=== PATIENT | female | born 1970 | race Caucasian/White ===

== ENCOUNTER 2024-05-01 08:38 | Outpatient (CLI) | payer OTHER, SELFPAY ==
[2024-05-01 13:38] LABS: Basophils Absolute Auto 0.1 K/mm3 (0.0-0.1); Basophils Percent Auto 1.4 % (0.2-1.2); Eosinophils Absolute Auto 0.2 K/mm3 (0-0.3); Eosinophils Percent Auto 2.8 % (0-4.4); Hematocrit 45.9 % (37.0-47.0); Hemoglobin 15.2 g/dL (12.0-15.0); Immature Granulocyte Absolute 0.01 K/mm3 (0.00-0.031); Immature Granulocyte Percent A 0.2 % (0-0.5); Lymphocytes Absolute Auto 2.32 K/mm3 (0.9-3.2); Lymphocytes Percent Auto 40.3 % (18.3-44.2); Mean Corpuscular HGB Conc 33.1 g/dl (32-36); Mean Corpuscular Hemoglobin 31.4 pg (26-34); Mean Corpuscular Volume 94.8 fl (80-100); Mean Platelet Volume 10.3 fl (7.4-10.4); Monocytes Absolute Auto 0.5 K/mm3 (0.1-0.6); Monocytes Percent Auto 7.8 % (2.6-8.5); Neutrophils Absolute Auto 2.7 K/mm3 (1.3-6.7); Neutrophils Percent Auto 47.5 % (45.5-73.1); Platelet Count Result 357 k/mm3 (150-375); Red Blood Count 4.84 M/mm3 (4.2-5.4); Red Cell Distribution Width 11.9 % (11.5-14.5); White Blood Count 5.8 K/mm3 (4.5-10.0)
[2024-05-01 13:41] LABS: Alanine Aminotransferase 45 U/L (6-35); Albumin Level 4.6 g/dL (3.5-5.1); Alkaline Phosphatase 72 U/L (38-126); Anion Gap 6 mmol/L (4-12); Aspartate Amino Transferase 94 U/L (14-36); Bilirubin,Total 0.3 mg/dL (0.2-1.3); Blood Urea Nitrogen 17 mg/dL (7-17); Calcium 9.4 mg/dL (8.4-10.2); Carbon Dioxide 30 mmol/L (22-30); Chloride 102 mmol/L (98-107); Estimated Glomerular Filt Rate > 60; Glucose 87 mg/dL (65-110); Potassium 4.7 mmol/L (3.4-5.0); Sodium 138 mmol/L (137-145)
[2024-05-01 17:23] LABS: Free T4 Free Thyroxine 1.02 ng/mL (0.78-2.19); Vitamin D 25 Hydroxy 53.7 ng/mL
[2024-05-01 19:22] LABS: Hemoglobin A1C 4.9 % (<5.7)
== END 2024-05-01 08:39 | disposition home or self-care (01) ==
LOC: ANHGOSHLAB 08:40
PROVIDERS: PCP Family Medicine; Visit Provider Family Medicine
DX: R73.9 Hyperglycemia, unspecified (principal); E78.5 Hyperlipidemia, unspecified; E55.9 Vitamin D deficiency, unspecified; R53.83 Other fatigue
CPT/HCPCS: 36415; 80053; 82306; 83036; 84439; 84443; 85025

== ENCOUNTER 2024-07-08 08:00 | Outpatient (CLI) | payer OTHER, SELFPAY ==
[2024-07-08 13:47] LABS: Alanine Aminotransferase 18 U/L (6-35); Albumin Level 4.3 g/dL (3.5-5.1); Alkaline Phosphatase 75 U/L (38-126); Aspartate Amino Transferase 54 U/L (14-36); Bilirubin,Total 0.6 mg/dL (0.2-1.3)
--- OUTSIDE RECORDS SUMMARY | 2024-07-11 11:43 | XMS_ITS | Clinical Summary ---
Author Organization [facility] [employer] Address [address] [place] [address] Care Team Providers Care Plastics Nurse Name Role Phone Ping Sanchez MD Primary Care Provider Source Comments [facility] [employer],non-owned Affiliates and Associated Physician Practices is amultiple site organization consisting of ambulatory clinics and hospital sitesin [place], [place], [place] and [place]. This disclosure is being madepursuant to the Care Everywhere program and may not contain all information available regarding this patient. Last updated 18.[employer] Allergies Active Allergy Reactions Criticality Noted Date Comments Naproxen 05/30/2008 Medications * Be aware that medications may not be up to date on this document. Always verify current medications with the patient. Medication Sig Dispensed Refills Start Date End Date Status multivitamin daily tablet Take 1 Tab by mouth daily. Active calcium 500 MG TABS tablet Take 500 mg by mouth daily. Active Biotin 1000 MCG Take 1,000 mcg by mouth once daily Active meclizine (ANTIVERT) 25 MG tablet Take 1 Tab by mouth 3 times daily as needed for Dizziness 30 Tab 06/16/2016 Active triamterene-hydroCH LOROthiazide (DYAZIDE) 37.5-25 MG capsule TK ONE C PO D 08/13/2018 Active guaiFENesin-codeine (ROBITUSSIN AC) 100-10 MG/5ML syrup Take 10 mL by mouth every 4 hours as needed for Cough 210 mL 01/01/2019 Active benzonatate (TESSALON) 200 MG capsule Take 1 capsule by mouth 3 times daily as needed for Cough 40 capsule 01/01/2019 Active Active Problems Problem Noted Date Diagnosed Date Acute bronchitis 01/01/2019 Acute maxillary sinusitis 01/01/2019 Generalized anxiety disorder 07/03/2008 Seasonal allergic rhinitis 05/30/2008 Screening for condition 05/30/2008 Overview (03/19/2015): Pap Smear: 10/[address] Luz Immunizations Name Administration Dates Next Due TDAP (7yrs+) 01/04/2008 Family History Medical History Relation Name Comments Hypertension Brother Asthma Father Diabetes Father Heart Disease Father Cancer - Stomach Paternal Aunt in 70 's Relation Name Status Comments Brother Father Paternal Aunt Social History Tobacco Use Types Packs/Day Years Used Date Smoking Tobacco: Never Smokeless Tobacco: Never Tobacco Cessation:Counseling Given: Yes Alcohol Use Standard Drinks/Week Comments Yes 0 (1 standard drink = 0.6 oz pur e alcohol) Occ. Sex and Gender Information Value Date Recorded Sex Assigned at Not on file Gender Identity Not on file Sexual Orientation Not on file Last Filed Vital Signs Vital Sign Reading Time Taken Comments Blood Pressure 132/84 01/01/2019 3:29 PM CDT Pulse 84 01/01/2019 3:29 PM CDT Temperature 37.1 ??C (98.8 ??F) 01/01/2019 3:29 PM CD T Respiratory Rate - - Oxygen Saturation - - Inhaled Oxygen Concentration - - Weight 73.7 kg (162 lb 6.4 oz) 01/01/2019 3:29 P M CDT Height 165.1 cm (5' 5 ) 01/01/2019 3:29 PM CDT Body Mass Index 27.02 01/01/2019 3:29 PM CDT Plan of Treatment Health Maintenance Due Date Last Done Comments COLOGUARD (AGES 45-75) - COL ON CA SCREENING 1971 COLON MONITORING 1971 COLONOSCOPY - COLON CA SCREENING 1971 CT COLONOGRAPHY - COLON CA SCREENING 1971 Colorectal Cancer Screening 1971 FIT - COLON CA SCREENING 1971 FLEX SIG - COLON CA SCREENING 1971 MAMMOGRAM 1971 PAP SMEAR 1971 HIV SCREENING 1986 HEPATITIS C SCREENING 05/26/1989 HEPATITIS B VACCINE (1 of 3 - 19+ 3-dose series) 1990 LIPID TESTING 09/19/2016 09/20/2011, 07/03/2008 DTAP/TDAP/TD VACCINES (2 - T d or Tdap) 01/03/2018 01/04/2008 SCREENING FOR DIABETES 01/01/2019 2, 07/03/2008 PNEUMOCOCCAL VACCINE 50+ (1 of 1 - PCV) 2021 ZOSTER VACCINE (1 of 2) 2021 COVID-19 VACCINE (1 - 2023-2 5 season) 2024 INFLUENZA VACCINE (#1) 2024 DEPRESSION SCREENING 06/19/2024 HIB VACCINE Aged Out No longer eligi ble based on patient's age to complete this topic HPV VACCINE Aged Out No longer eligi ble based on patient's age to complete this topic MENINGOCOCCAL (Group B) VACCINE Aged Out No longer eligible b ased on patient's age to complete this topic MENINGOCOCCAL VACCINE Aged Out No roman zee eligible based on patient's age to complete this topic PNEUMOCOCCAL VACCINE Aged Out No long er eligible based on patient's age to complete this topic Procedures Procedure Name Priority Date/Time Associated Diagnosis Comments GENERAL HEALTH PANEL Routine 09/20/2011 11:30 AM CDT Annual physical exam LIPID PROFILE W TCHOL/HDL Routine 09/20/2011 11:30 AM CDT Annual physical exam from Last 3 Months or Most Recently Relevant to Health Maintenance Results * GENERAL HEALTH PANEL (09/20/2011 11:30 AM CDT) Glucose 91 65 - 99 mg/dL [facility] ACCOUNT BILL BUN 14 6 - 24 mg/dL [facility] ACCOUNT BILL Creatinine 0.75 0.57 - 1.00 mg/dL [facility] ACCOUNT BILL eGFR by MDRD 100 >59 mL/min/1. 73 [facility] ACCOUNT BILL eGFR by MDRD 115 >59 mL/min/1. 73 [facility] ACCOUNT BILL Comment: Note: A persistent eGFR <60 mL/min/1.73 m2 (3 months or more) may indicate chronic kidney disease. An eGFR >59 mL/min/1.73 m2 with an elevated urine protein also may indicate chronic kidney disease. Calculated using CKD-EPI formula. BUN/Creatinine Ratio 19 9 - 23 [facility] ACCOUNT BILL Sodium 140 134 - 144 mmol/L [facility] ACCOUNT BILL Potassium 4.1 3.5 - 5.2 mmol/L [facility] ACCOUNT BILL Chloride 102 97 - 108 mmol/L [facility] ACCOUNT BILL CO2 23 20 - 32 mmol/L [facility] ACCOUNT BILL Calcium 9.5 8.7 - 10.2 mg/dL [facility] ACCOUNT BILL Protein Total 6.6 6.0 - 8.5 g/dL [facility] ACCOUNT BILL Albumin 4.3 3.5 - 5.5 g/dL [facility] ACCOUNT BILL Globulin Total 2.3 1.5 - 4.5 g/dL [facility] ACCOUNT BILL Albumin/Globulin Ratio 1.9 1.1 - 2.5 [facility] ACCOUNT BILL Bilirubin Total 0.3 0.0 - 1.2 mg/dL [facility] ACCOUNT BILL Alkaline Phosphatase 55 25 - 150 IU/L [facility] ACCOUNT BILL AST 16 0 - 40 IU/L [facility] ACCOUNT BILL ALT 12 0 - 40 IU/L [facility] ACCOUNT BILL TSH 2.340 0.450 - 4.500 uIU/mL [facility] ACCOUNT BILL WBC 7.7 4.0 - 10.5 x10E3/uL [facility] ACCOUNT BILL RBC 4.20 3.80 - 5.10 x10E6/uL [facility] ACCOUNT BILL Hemoglobin 13.0 11.5 - 15.0 g/dL [facility] ACCOUNT BILL Hematocrit 39.5 34.0 - 44.0 % [facility] ACCOUNT BILL MCV 94 80 - 98 fL [facility] ACCOUNT BILL MCH 31.0 27.0 - 34.0 pg [facility] ACCOUNT BILL MCHC 32.9 32.0 - 36.0 g/dL [facility] ACCOUNT BILL RDW 12.7 11.7 - 15.0 % [facility] ACCOUNT BILL Platelet Count 301 140 - 415 x10E3/uL [facility] ACCOUNT BILL Granulocytes % 58 40 - 74 % [facility] ACCOUNT BILL Lymphocytes % 31 14 - 46 % [facility] ACCOUNT BILL Monocytes % 9 4 - 13 % [facility] ACCOUNT BILL Eosinophils % 1 0 - 7 % [facility] ACCOUNT BILL Basophils % 1 0 - 3 % [facility] ACCOUNT BILL Immature Cells NOT NEEDED [facility] ACCOUNT B[facility] Comment:Ancillary determined the test is not needed Granulocytes Absolute 4.6 1.8 - 7.8 x10E3/uL [facility] ACCOUNT BILL Lymphocytes Absolute 2.4 0.7 - 4.5 x10E3/uL [facility] ACCOUNT BILL Monocytes Absolute 0.7 0.1 - 1.0 x10E3/uL [facility] ACCOUNT BILL Eosinophils Absolute 0.0 0.0 - 0.4 x10E3/uL [facility] ACCOUNT BILL Basophils Absolute 0.0 0.0 - 0.2 x10E3/uL [facility] ACCOUNT BILL Immature Granulocytes 0 0 - 2 % [facility] ACCOUNT BILL Immature Granulocytes Absolute 0.0 0.0 - 0.1 x10E3/uL [facility] ACCOUNT BILL nRBC NOT NEEDED [facility] ACCOUNT BILL Comment:Ancillary determined the test is not needed Comment Hematology NOT NEEDED [facility] ACCOUNT BILL Comment:Ancillary determined the test is not needed BLOOD SPECIMEN / Unknown 09/20/2011 11:30 AM CDT 09/20/2011 6:47 PM CDT Narrative Resulting Agency Comment [facility] [address] ??[facility] [phone] Ping Sanchez MD LAB - CHEMISTRY CRUZITO LAZO Performing Organization Address [facility] Co de Phone Number [facility] ACCOUNT BILL * LIPID PROFILE W TCHOL/HDL (PO REF LAB) (09/20/2011 11:30 AM CDT) Cholesterol 150 100 - 199 mg/dL [facility] ACCOUNT BILL Triglycerides 95 0 - 149 mg/dL [facility] ACCOUNT BILL HDL Cholesterol 63 >39 mg/dL [facility]OUNT B[facility] Comment: According to ATP-III Guidelines, HDL-C >59 mg/dL is considered a negative risk factor for CHD. VLDL Calculated 19 5 - 40 mg/dL [facility] ACCOUNT BILL LDL Calculated 68 0 - 99 mg/dL [facility] ACCOUNT BILL Cholesterol/HDL Ratio 2.4 0.0 - 4.4 ratio units [facility] ACCOUNT BILL BLOOD SPECIMEN / Unknown 09/20/2011 11:30 AM CDT 09/20/2011 6:47 PM CDT Narrative Resulting Agency Comment [facility] [address] ??[facility] [phone] Ping Sanchez MD LAB - CHEMISTRY CRUZITO LAZO Performing Organization Address [facility] Co de Phone Number [facility] ACCOUNT BILL from Last 3 Months or Most Recently Relevant to Health Maintenance Care Teams Plastics Nurse Relationship Specialty Start Date End Date Ping Sanchez MD PCP - General 05/30/08
--- OUTSIDE RECORDS SUMMARY | 2024-07-11 11:43 | XMS_ITS | Patient Health Summary ---
Author Organization [facility] [employer] Address [address] [place] [address] Care Team Providers Care Radio Interference Trouble Shooter Name Role Phone Ping Sanchez MD Primary Care Provider [phone] Note from [facility],non-owned Affiliates and Associated Physician Practices is amultiple site organization consisting of ambulatory clinics and hospital sitesin [place], [place], [place] and [place]. This disclosure is being madepursuant to the Care Everywhere program and may not contain all information available regarding this patient. Last updated 18.[facility] [employer] Allergies * Naproxen Medications * Be aware that medications may not be up to date on this document. Alwaysverify current medications with the patient. * multivitamin daily tablet Take 1 Tab by mouth daily. * calcium 500 MG TABS tablet Take 500 mg by mouth daily. * Biotin 1000 MCG Take 1,000 mcg by mouth once daily * meclizine (ANTIVERT) 25 MG tablet(Started 06/16/2016) Take 1 Tab by mouth 3 times daily as needed for Dizziness * triamterene-hydroCHLOROthiazide (DYAZIDE) 37.5-25 MG capsule(Started 08/13/2018) TK ONE C PO D * guaiFENesin-codeine (ROBITUSSIN AC) 100-10 MG/5ML syrup(Started 01/01/2019) Take 10 mL by mouth every 4 hours as needed for Cough * benzonatate (TESSALON) 200 MG capsule(Started 01/01/2019) Take 1 capsule by mouth 3 times daily as needed for Cough Active Problems Problem Noted Date Diagnosed Date Acute bronchitis 01/01/2019 Acute maxillary sinusitis 01/01/2019 Generalized anxiety disorder 07/03/2008 Seasonal allergic rhinitis 05/30/2008 Screening for condition 05/30/2008 Immunizations * TDAP (7yrs+)(Given 01/04/2008) Social History Tobacco Use Types Packs/Day Years [...] Mass Index 27.02 01/01/2019 3:29 PM CDT Procedures * URINALYSIS - POINT OF CARE(Performed 09/20/2011) Performed for Annual physical exam * VITAMIN D 25-HYDROXY(Performed 09/20/2011) Performed for Annual physical exam * LIPID PROFILE W TCHOL/HDL(Performed 09/20/2011) Performed for Annual physical exam * GENERAL HEALTH PANEL(Performed 09/20/2011) Performed for Annual physical exam * EKG 12-LEAD(Performed 09/19/2011) Performed for Dyspnea on exertion * LIPID PROFILE W TCHOL/HDL(Performed 07/03/2008) Performed for Hyperlipidemia * COMPREHENSIVE METABOLIC PANEL(Performed 07/03/2008) Performed for Hyperlipidemia Results * URINALYSIS - POINT OF CARE (09/20/2011 11:44 AM CDT) Clarity UA POCT Color UA POCT Leukocyte UA neg Negative Nitrite UA POCT neg Negative Urobilinogen UA POCT neg 0.1 - 1.0 EU/dL Protein UA POCT neg Negative pH UA 6.0 5.0 - 8.0 pH units Blood UA neg Negative Specific Hilliard UA POCT 1.025 1.002 - 1.030 Ketone UA neg Negative Bilirubin UA POCT neg Negative Glucose UA neg Negative Urine specimen (specimen) URINE / Unknown Ping Sanchez MD LAB - POINT OF CARE ORDERABLES * GENERAL HEALTH PANEL (09/20/2011 11:30 AM [...] PM CDT Narrative Resulting Agency Comment [facility] [place] [phone] [facility] ??[facility] [phone] Ping Sanchez MD LAB - CHEMISTRY CRUZITO LAZO [facility] Organization Address City/State/ZIP Co de Phone Number [facility] ACCOUNT BILL * LIPID PROFILE W TCHOL/HDL (PO REF LAB) (09/20/2011 11:30 AM CDT) Only the most recent of2 resultswithin the time period is included. Cholesterol 150 100 - 199 mg/dL [facility] [...] PM CDT Narrative Resulting Agency Comment [facility] [address] ??[facility] [phone] Ping Sanchez MD LAB - CHEMISTRY CRUZITO LAZO [facility] ACCOUNT BILL * (ABNORMAL) VITAMIN D 25-HYDROXY (09/20/2011 11:30 AM CDT) Vitamin D, 25 Hydroxy 27.2(L) 30.0 - 100.0 ng/mL [facility] ACCOUNT BILL Comment: Vitamin D deficiency has been defined by the [place] of Medicine and an Endocrine Society practice guideline as a level of serum 25-OH vitamin D less than 20 ng/mL (1,2). The Endocrine Society went on to further define vitamin D insufficiency as a level between 21 and 29 ng/mL (2). 1. IOM ([place] of Medicine). 2010. Dietary reference ?? intakes for calcium and D. [place]: The ?? National Academies Press. 2. Atnoinette MF, Samantha MIDDLETON, Hardy CASTILLO, et al. ?? Evaluation, treatment, and prevention of vitamin D ?? deficiency: an Endocrine Society clinical practice ?? guideline. JCEM. 2010; 96(7):1911-30. Blood specimen (specimen) BLOOD SPECIMEN / Unknown 09/20/2011 11:30 AM CDT 09/20/2011 6:47 PM CDT Narrative Resulting Agency Comment [facility] [place] ??[place] [phone] Ping Sanchez MD LAB - CHEMISTRY ORDE RABLES [facility] ACCOUNT BILL * EKG 12-LEAD (09/19/2011) Ping Sanchez MD ECG ORDERABLES [facility] RESULT SCAN * COMPREHENSIVE METABOLIC PANEL (07/03/2008 12:16 PM DEBURRING AND TOOLING MACHINE OPERATOR) Glucose 77 65 - 99 mg/dL [facility] ACCOUNT BILL BUN 10 5 - 26 mg/dL [facility] ACCOUNT BILL Creatinine 0.90 0.57 - 1.00 mg/dL [facility] ACCOUNT BILL eGFR by MDRD >59 >59 mL/min/1.7 3 [facility] ACCOUNT BILL eGFR by MDRD >59 >59 mL/min/1.7 3 [facility] ACCOUNT BILL Comment: Note: ??Persistent reduction for 3 months or more in an eGFR <60 mL/min/1.73 m2 defines CKD. ??Patients with eGFR values >/=60 mL/min/1.73 m2 may also have CKD if evidence of persistent proteinuria is present. Additional information may be found at www.kdoqi.org. BUN/Creatinine Ratio 11 8 - 27 [facility] ACCOUNT BILL Sodium 138 135 - 145 mmol/L [facility] ACCOUNT BILL Potassium 3.8 3.5 - 5.2 mmol/L [facility] ACCOUNT BILL Chloride 103 97 - 108 mmol/L [facility] ACCOUNT BILL CO2 24 20 - 32 mmol/L [facility] ACCOUNT BILL Calcium 9.6 8.5 - 10.6 mg/dL [facility] ACCOUNT BILL Protein Total 6.8 6.0 - 8.5 g/dL [facility] ACCOUNT BILL Albumin 4.1 3.5 - 5.5 g/dL [facility] ACCOUNT BILL Globulin Total 2.7 1.5 - 4.5 g/dL [facility] ACCOUNT BILL Albumin/Globulin Ratio 1.5 1.1 - 2.5 [facility] ACCOUNT BILL Bilirubin Total 0.1 0.1 - 1.2 mg/dL [facility] ACCOUNT BILL Alkaline Phosphatase 42 25 - 150 IU/L [facility] ACCOUNT BILL AST 11 0 - 40 IU/L [facility] ACCOUNT BILL ALT 10 0 - 40 IU/L [facility] ACCOUNT BILL BLOOD SPECIMEN / Unknown 07/03/2008 12:16 PM DEBURRING AND TOOLING MACHINE OPERATOR 07/03/2008 8:58 PM DEBURRING AND TOOLING MACHINE OPERATOR Narrative Resulting Agency Comment [facility] [address] ??[facility] [phone] Ping Sanchez MD LAB - CHEMISTRY CRUZITO LAZO [facility] ACCOUNT BILL Care Teams Radio Interference Trouble Shooter Relationship Specialty Start Date End Date Ping Sanchez MD PCP - General 05/30/08
--- OUTSIDE RECORDS SUMMARY | 2024-07-11 11:43 | XMS_ITS | Referral Summary ---
Author Organization [facility] [employer] Address [address] [place] [address] Care Team Providers Care Gui Developer Name Role Phone Ping Sanchez MD Primary Care Provider [phone] Source Comments [facility] [employer],non-owned Affiliates and Associated Physician Practices is amultiple site organization consisting of ambulatory clinics and hospital sitesin [place], [place], [place] and [place]. This disclosure is being madepursuant to the Care Everywhere program and may not contain all information available regarding this patient. Last updated 18.[facility] [employer] Allergies Active Allergy Reactions Criticality Noted Date Comments Naproxen 05/30/2008 Medications * Be aware that medications may not be up to date on this document. Alwaysverify current medications with the patient. Medication Sig [...] condition 05/30/2008 Overview (03/19/2015): Pap Smear: 10/[address] Luz Immunizations Name Administration Dates Next Due TDAP (7yrs+) 01/04/2008 Social History Tobacco Use Types Packs/Day Years [...] 01/01/2019 3:29 PM CDT Plan of Treatment Not on file Procedures Procedure Name Priority Date/Time Associated Diagnosis [...] PM CDT Narrative Resulting Agency Comment [facility] [address] ??[facility] [phone] Ping Sanchez MD LAB - CHEMISTRY CRUZITO LAZO [facility] Organization Address City/State/ZIP Co de Phone Number [...] PM CDT Narrative Resulting Agency Comment [facility] [place] [address] ??[place] [phone] Ping Sanchez MD LAB - CHEMISTRY CRUZITO LAZO [facility] Organization Address City/State/ZIP Co de Phone Number [facility] ACCOUNT BILL from Last 3 Months or Most Recently Relevant to Health Maintenance Care Teams Gui Developer Relationship Specialty Start Date End Date Ping Sanchez MD PCP - General 05/30/08
== END 2024-07-08 08:01 | disposition home or self-care (01) ==
LOC: ANHGOSHLAB 08:01
PROVIDERS: PCP Family Medicine; Visit Provider Family Medicine
DX: R74.8 Abnormal levels of other serum enzymes (principal)
CPT/HCPCS: 36415; 80076